=== PATIENT | male | born 1965 | race Caucasian/White ===

== ENCOUNTER 2019-05-17 10:46 | Inpatient (IN) | payer OTHER ==
[2019-05-17 11:09] VITALS: BMI 22.4
--- NOTE | 2019-05-17 12:16 | HP ---
"COWS - Scale Resting Pulse: 1= [place] 81-100 Sweatin= No chills or Flushing Restless Observation: 5= Unable to Sit Still Pupil Size: 0= Normal to Room Light Bone or Joint Aches: 0= None Runny Nose/ Eye Tearin= None GI Upset > 30mins: 0= None Tremor Observation: 0= None Yawning Observation: 0= None Anxiety or Irritability: 2=Irritable/Anxious Goose Flesh Skin: 0=Smooth Skin COWS Score: 8 CIWA Score Nausea/Vomitin-No Nausea/No Vomiting Muscle Tremors: None Anxiety: 2 Agitation: 2 Paroxysmal Sweats: No Perspiration Orientation: 0-Oriented Tacttile Disturbances: 0-None Auditory Disturbances: 0-None Visual Disturbances: 0-None Headache: 0-None Present CIWA-Ar Total Score: 4 - Admission Criteria OASAS Guidelines: Admission for Medically Managed Detox: Requires at least one of the followin. CIWA greater than 12 2. Seizures within the past 24 hours 3. Delirium tremens within the past 24 hours 4. Hallucinations within the past 24 hours 5. Acute intervention needed for co occurring medical disorder 6. Acute intervention needed for co occurring psychiatric disorder 7. Severe withdrawal that cannot be handled at a lower level of care (continued vomiting, continued diarrhea, abnormal vital signs) requiring intravenous medication and/or fluids 8. Admission ROS [facility] Allergies/Adverse Reactions: Allergies Allergy/AdvReac Type Severity Reaction Status Date / Time No Known Allergies Allergy Verified 05/17/19 10:59 History of Present Illness: This report was requested by: Stephany Sanders | Reference #: [id number] Others' Prescriptions Patient Name: Quan Parsons Date: 1965 Address: [address] [place] [address] Sex: Male Rx Written Rx Dispensed Drug Quantity Days Supply Prescriber Name 04/26/2019 04/26/2019 buprenorphine-naloxone 8-2 mg sl film 9 3 LaksClive MD 04/26/2019 04/26/2019 chlordiazepoxide 10 mg capsule 35 3 LaksClive MD 02/28/2019 02/28/2019 buprenorphine-naloxone 4-1 mg sl film 3 1 LaksClive MD 02/26/2019 02/26/2019 buprenorphine-naloxone 8-2 mg sl film 9 3 LaksClive MD 02/26/2019 02/26/2019 chlordiazepoxide 10 mg capsule 35 3 Laks, Clive CANTRELL pt here requesting detox from alcohol and heroin , reports 5-10 bags via inhalation, denies ivdu , latest use this morning .first age of use 20 , intermittent sobriety 2 yrs/ 7 yrs/ 7 mo , denies OD ,was in detox 2 weeks ago . etoh : 20 cans of beer/day , reports mild tremors if not drinking , reports 1-2 mo use , prior social use , denies seizures or blackouts . latest use today , current yahir 0.021 pmhx : anxiety , hep c s/p tx w/ Mavyret 2 yrs ago ,per pt he completed tx. Exam Limitations: No Limitations - Ebola screening Have you traveled outside of the country in the last 21 days: No Have you had contact with anyone from an Ebola affected area: No Do you have a fever: No - Review of Systems Constitutional: Loss of Appetite EENT: reports: Other (glasses) Respiratory: reports: No Symptoms reported Cardiac: reports: No Symptoms Reported GI: reports: Constipated, Poor Appetite : reports: No Symptoms Reported Musculoskeletal: reports: No Symptoms Reported Integumentary: reports: No Symptoms Reported Neuro: reports: No Symptoms reported Endocrine: reports: No Symptoms Reported Psychiatric: reports: Orientated x3, Agitated, Anxious Patient History - Smoking Cessation Smoking history: Current every day smoker Have you smoked in the past 12 months: Yes Hx Chewing Tobacco Use: No Initiated information on smoking cessation: Yes 'Breaking Loose' booklet given: 05/17/19 - Substances abused Alcohol Substance route: Oral Frequency: Daily Amount used: 24 cans of beer. 1 pint of vodka Age of first use: 11 Date of last use: 05/17/19 Heroin Substance route: Inhalation Frequency: Daily Amount used: 5-10 bags Age of first use: 20 Date of last use: 05/17/19 Admission Physical Exam [facility] - Vital Signs Vital Signs: Vital Signs - 24 hr 05/17/19 10:59 Temperature 97.7 F Pulse Rate 85 Respiratory 18 Rate Blood Pressure 101/73 - Physical General Appearance: Yes: Mild Distress, Alcohol on Breath, Intoxicated, Irritable, Anxious, Other (slurred speech) HEENTM: Yes: EOMI, Hearing grossly Normal, Normocephalic, Normal Voice Respiratory: Yes: Chest Non-Tender, Lungs Clear, Normal Breath Sounds, No Respiratory Distress, No Accessory Muscle Use Neck: Yes: No masses,lesions,Nodules, Trachea in good position Cardiology: Yes: Regular Rhythm, Regular Rate, S1, S2 Abdominal: Yes: Non Tender, Soft Genitourinary: Yes: Within Normal Limits Musculoskeletal: Yes: full range of Motion, Gait Steady Extremities: Yes: Normal Range of Motion, Non-Tender Neurological: Yes: Fully Oriented, Alert, Motor Strength 5/5 Integumentary: Yes: Warm - Diagnostic (1) Opioid dependence Current Visit: Yes Status: Acute Qualifiers: Substance use status: with intoxication (2) Nicotine dependence Current Visit: Yes Status: Chronic Qualifiers: Nicotine product type: cigarettes (3) Alcohol use disorder, mild, abuse Current Visit: Yes Status: Acute Inpatient Rehab Admission - Rehab Decision to Admit Inpatient rehab admission?: No"
[2019-05-17] MEDS ORDERED: IBUPROFEN 400 MG TABLET (FP) PO PRN (12:41)
[2019-05-17] MEDS ORDERED: METHOCARBAMOL 500 MG TABLET PO PRN (12:41)
[2019-05-17] MEDS ORDERED: BISMUTH SUBSALICYLATE 262 MG/15 ML BTL PO PRN (12:41)
[2019-05-17] MEDS ORDERED: MAGNESIUM CITRATE 300 ML BOTTLE PO PRN (12:41)
[2019-05-17] MEDS ORDERED: ACETAMINOPHEN 325 MG TABLET (FP) PO PRN ×2 (12:41)
[2019-05-17] MEDS ORDERED: MAGNESIUM HYDROX 2400MG/30ML ORAL SUSPENSION 30 ML CUP PO PRN (12:41)
[2019-05-17] MEDS ORDERED: MAG HYDROX/AL HYDROX/SIMETH 30 ML UNIT-DOSE CUP PO PRN (12:41)
[2019-05-17] MEDS ORDERED: MENTHOL/PHENOL 1 EACH UD MM PRN (12:41)
[2019-05-17] MEDS ORDERED: chlordiazePOXIDE HCL 10 MG CAPSULE PO PRN (12:44)
[2019-05-17] MEDS: chlordiazePOXIDE HCL 25 MG CAPSULE PO SCH ×2 (14:41→22:33)
[2019-05-17] MEDS: NICOTINE 14 MG/24 HOURS TOPICAL PATCH TD SCH (14:48)
[2019-05-17] MEDS: hydrOXYzine PAMOATE 25 MG CAPSULE (FP) PO PRN (16:59)
[2019-05-17] MEDS: THIAMINE HCL 100 MG TABLET (FP) PO SCH (22:33)
[2019-05-17] MEDS ORDERED: METHADONE HCL 10 MG TABLET (FOR DETOX USE ONLY) PO ONE (23:00)
[2019-05-18] MEDS: chlordiazePOXIDE HCL 25 MG CAPSULE PO SCH ×3 (07:47→21:35)
[2019-05-18] MEDS ORDERED: METHADONE HCL 5 MG TABLET (FOR DETOX USE ONLY) PO ONE (10:00)
--- NOTE | 2019-05-18 10:09 | PN ---
[facility] CIWA - CIWA Score Nausea/Vomitin-Mild Nausea/No Vomiting Muscle Tremors: 1-None Visible, but [place] Anxiety: 2 Agitation: 2 Paroxysmal Sweats: No Perspiration Orientation: 0-Oriented Tacttile Disturbances: 1-Very Mild Itch/Numbness Auditory Disturbances: 0-None Visual Disturbances: 0-None Headache: 1-Very Mild CIWA-Ar Total Score: 8 [facility] COWS - Scale Resting Pulse: 1= [place] 81-100 Sweatin= No chills or Flushing Restless Observation: 1= Difficult to Sit Still Pupil Size: 1= Pupils >than Normal Bone or Joint Aches: 1= Mild Discomfort Runny Nose/ Eye Tearin= Nasal Congestion GI Upset > 30mins: 1= Stomach Cramp Tremor Observation of Outstretched Hands: 1= Tremor [place], Not Seen Yawning Observation: 1= 1-2x During Session Anxiety or Irritability: 2=Irritable/Anxious Goose Flesh Skin: 0=Smooth Skin COWS Score: 10 [facility] Progress Note (SOAP) Subjective: alert,irritable,anxious,pain in the body and back,tremor Objective: 05/18/19 10:16 Vital Signs Temperature 97.9 F 05/18/19 09:20 Pulse Rate 92 H 05/18/19 09:20 Respiratory Rate 18 05/18/19 09:20 Blood Pressure 112/77 05/18/19 09:20 O2 Sat by Pulse Oximetry (%) labs pending Assessment: 05/18/19 10:16 withdrawal symptom Plan: continue detox,methadone and librium regimen
[2019-05-18] MEDS: NICOTINE 14 MG/24 HOURS TOPICAL PATCH TD SCH (10:25)
[2019-05-18] MEDS: PRENATAL VITAMINS W/ FOLIC ACID TABLET (FP) PO SCH (10:25)
[2019-05-18 10:34] LABS: HEMATOCRIT 41.1 % (35.4-49); HEMOGLOBIN 13.6 GM/dL (11.7-16.9); MCH 32.2 pg (25.7-33.7); MCHC 33.1 g/dl (32.0-35.9); MEAN CELL VOLUME 97.4 fl (80-96); MEAN PLT VOLUME 9.4 fl (7.5-11.1); PLATELET COUNT 223 K/MM3 (134-434); RBC 4.22 M/mm3 (4.00-5.60); RDW 14.9 % (11.9-15.9); WHITE BLOOD COUNT 8.8 K/mm3 (4.0-10.0)
[2019-05-18 10:57] LABS: ALBUMIN 3.4 g/dl (3.4-5.0); BILIRUBIN,TOTAL 0.4 mg/dL (0.2-1); BLOOD UREA NITROGEN 10.4 mg/dL (7-18); CALCIUM 8.8 mg/dL (8.5-10.1); CREATININE 0.7 mg/dL (0.55-1.3); POTASSIUM 4.5 mmol/L (3.5-5.1); TOT PROT 6.5 g/dl (6.4-8.2)
[2019-05-18] MEDS ORDERED: FLU VACCINE QUAD 60 MCG/0.5 ML (MDV 19-20) IM ONE (12:00)
[2019-05-18] MEDS: THIAMINE HCL 100 MG TABLET (FP) PO SCH (22:35)
[2019-05-19] MEDS: chlordiazePOXIDE 5 MG CAPSULE PO SCH ×3 (07:07→21:45)
[2019-05-19] MEDS ORDERED: METHADONE HCL 10 MG TABLET (FOR DETOX USE ONLY) PO ONE (10:00)
[2019-05-19] MEDS: NICOTINE 14 MG/24 HOURS TOPICAL PATCH TD SCH (10:23)
[2019-05-19] MEDS: PRENATAL VITAMINS W/ FOLIC ACID TABLET (FP) PO SCH (10:23)
--- NOTE | 2019-05-19 11:02 | PN ---
S CIWA - CIWA Score Nausea/Vomitin-No Nausea/No Vomiting Muscle Tremors: 2 Anxiety: 3 Agitation: 0-Normal Activity Paroxysmal Sweats: 3 Orientation: 0-Oriented Tacttile Disturbances: 0-None Auditory Disturbances: 0-None Visual Disturbances: 0-None Headache: 2-Mild CIWA-Ar Total Score: 10 S COWS - Scale Resting Pulse: 0= [place] 80 or Below Sweatin= Beads of Sweat on Face Restless Observation: 1= Difficult to Sit Still Pupil Size: 0= Normal to Room Light Bone or Joint Aches: 2= Severe Diffuse Aches Runny Nose/ Eye Tearin= None GI Upset > 30mins: 0= None Tremor Observation of Outstretched Hands: 0= None Yawning Observation: 1= 1-2x During Session Anxiety or Irritability: 2=Irritable/Anxious Goose Flesh Skin: 0=Smooth Skin COWS Score: 9 S Progress Note (SOAP) Subjective: c/o anxiety, irritability, headache, and sweats. Objective: 05/19/19 11:00 Vital Signs 05/19/19 06:21 Temperature 97.9 F Pulse Rate 75 Respiratory 16 Rate Blood Pressure 138/87 Lab Results WBC 8.8 K/mm3 (4.0-10.0) 05/18/19 07:20 RBC 4.22 M/mm3 (4.00-5.60) 05/18/19 07:20 Hgb 13.6 GM/dL (11.7-16.9) 05/18/19 07:20 Hct 41.1 % (35.4-49) 05/18/19 07:20 MCV 97.4 fl (80-96) H 05/18/19 07:20 MCHC 33.1 g/dl (32.0-35.9) 05/18/19 07:20 RDW 14.9 % (11.9-15.9) 05/18/19 07:20 Plt Count 223 K/MM3 (134-434) 05/18/19 07:20 Sodium 143 mmol/L (136-145) 05/18/19 07:20 Potassium 4.5 mmol/L (3.5-5.1) 05/18/19 07:20 Chloride 109 mmol/L (98-107) H 05/18/19 07:20 Carbon Dioxide 28 mmol/L (21-32) 05/18/19 07:20 Anion Gap 6 MMOL/L (8-16) L 05/18/19 07:20 BUN 10.4 mg/dL (7-18) 05/18/19 07:20 Creatinine 0.7 mg/dL (0.55-1.3) 05/18/19 07:20 Random Glucose 97 mg/dL (74-106) 05/18/19 07:20 Calcium 8.8 mg/dL (8.5-10.1) 05/18/19 07:20 Labs noted. Assessment: 05/19/19 11:00 AOX3, in no acute respiratory distress. Full ROM, ambulating in the unit. withdrawal symptoms. Plan: continue detox.
[2019-05-19] MEDS: hydrOXYzine PAMOATE 25 MG CAPSULE (FP) PO PRN (15:16)
[2019-05-19] MEDS ORDERED: NICOTINE POLACRILEX 2 MG GUM BC PRN (17:13)
[2019-05-19] MEDS: THIAMINE HCL 100 MG TABLET (FP) PO SCH (21:44)
[2019-05-19] MEDS: MELATONIN 5 MG TABLETS PO PRN (21:44)
[2019-05-20] MEDS ORDERED: chlordiazePOXIDE HCL 10 MG CAPSULE PO PRN
[2019-05-20] MEDS ORDERED: METHADONE HCL 5 MG TABLET (FOR DETOX USE ONLY) PO ONE (06:00)
[2019-05-20] MEDS: chlordiazePOXIDE HCL 10 MG CAPSULE PO SCH ×3 (06:44→21:23)
[2019-05-20] MEDS: NICOTINE 14 MG/24 HOURS TOPICAL PATCH TD SCH (10:24)
[2019-05-20] MEDS: PRENATAL VITAMINS W/ FOLIC ACID TABLET (FP) PO SCH (10:24)
--- NOTE | 2019-05-20 12:22 | PN ---
S CIWA - CIWA Score Nausea/Vomitin-No Nausea/No Vomiting Muscle Tremors: None Anxiety: 3 Agitation: 2 Paroxysmal Sweats: 2 Orientation: 0-Oriented Tacttile Disturbances: 0-None Auditory Disturbances: 0-None Visual Disturbances: 0-None Headache: 0-None Present CIWA-Ar Total Score: 7 S COWS - Scale Resting Pulse: 0= [place] 80 or Below Sweatin= No chills or Flushing Restless Observation: 0= Sits Still Pupil Size: 0= Normal to Room Light Bone or Joint Aches: 1= Mild Discomfort Runny Nose/ Eye Tearin= None GI Upset > 30mins: 1= Stomach Cramp Tremor Observation of Outstretched Hands: 0= None Yawning Observation: 1= 1-2x During Session Anxiety or Irritability: 2=Irritable/Anxious Goose Flesh Skin: 0=Smooth Skin COWS Score: 5 S Progress Note (SOAP) Subjective: Feels ok, medication is working Objective: 05/20/19 12:23 Last Vital Signs Temp Pulse Resp BP Pulse Ox 98.1 F 80 16 122/74 05/20/19 09:36 05/20/19 09:36 05/20/19 09:36 05/20/19 09:36 Laboratory Tests 05/18/19 05/18/19 05/18/19 07:20 07:20 07:20 WBC 8.8 RBC 4.22 Hgb 13.6 Hct 41.1 MCV 97.4 H MCH 32.2 MCHC 33.1 RDW 14.9 Plt Count 223 MPV 9.4 Sodium 143 Potassium 4.5 Chloride 109 H Carbon Dioxide 28 Anion Gap 6 L BUN 10.4 Creatinine 0.7 Est GFR (CKD-EPI)AfAm 122.27 Est GFR (CKD-EPI)NonAf 105.50 Random Glucose 97 Calcium 8.8 Total Bilirubin 0.4 AST 17 ALT 23 Alkaline Phosphatase 72 Total Protein 6.5 Albumin 3.4 RPR Titer Nonreactive Labs reviewed Assessment: 05/20/19 12:23 Withdrawal sxs Plan: Continue detox Encouraged PO water intake Patient scheduled for discharge tomorrow
[2019-05-20] MEDS: THIAMINE HCL 100 MG TABLET (FP) PO SCH (22:24)
[2019-05-21] MEDS: MELATONIN 5 MG TABLETS PO PRN (00:16)
[2019-05-21] MEDS ORDERED: chlordiazePOXIDE HCL 10 MG CAPSULE PO ONE (05:00)
[2019-05-21 09:14] VITALS: TEMP 97.5
[2019-05-21 09:37] VITALS: BP 116/67; PULSE 83
[2019-05-21] MEDS ORDERED: IBUPROFEN 400 MG TABLET (FP) PO PRN (09:37)
--- NOTE | 2019-05-21 11:18 | PN ---
[facility] CIWA - CIWA Score Nausea/Vomitin-No Nausea/No Vomiting Muscle Tremors: 1-None Visible, but [place] Anxiety: 1-Mildly Anxious Agitation: 1-Slight > Activity Paroxysmal Sweats: No Perspiration Orientation: 0-Oriented Tacttile Disturbances: 0-None Auditory Disturbances: 0-None Visual Disturbances: 0-None Headache: 0-None Present CIWA-Ar Total Score: 3 [facility] COWS - Scale Resting Pulse: 1= [place] 81-100 Sweatin= No chills or Flushing Restless Observation: 0= Sits Still Pupil Size: 0= Normal to Room Light Bone or Joint Aches: 1= Mild Discomfort Runny Nose/ Eye Tearin= None GI Upset > 30mins: 0= None Tremor Observation of Outstretched Hands: 0= None Yawning Observation: 0= None Anxiety or Irritability: 0= None Goose Flesh Skin: 0=Smooth Skin COWS Score: 2 S Progress Note (SOAP) Subjective: alert,no complaint, Objective: 05/21/19 11:16 Vital Signs Temperature 97.5 F L 05/21/19 09:36 Pulse Rate 83 05/21/19 09:36 Respiratory Rate 16 05/21/19 09:36 Blood Pressure 116/67 05/21/19 09:36 O2 Sat by Pulse Oximetry (%) Assessment: 05/21/19 11:16 detox completed,no withdrawal symptom Plan: stable for discharge today,follow up with after care program as arrangement
--- NOTE | 2019-05-21 11:21 | PN ---
[facility] Progress Note Note: patient is taking motrin 800 mgs po q 8 hrs prn and gabapentin 300 mgs po tid for low back pain, will be discharged with these medications for 10 days supplied
--- NOTE | 2019-05-21 11:26 | DS ---
[facility] Detox Discharge Summary Admission Date: 05/17/19 Discharge Date: 05/21/19 - History Present History: Alcohol Dependence, Opioid Dependence Additional Comments: follow up with after care program as arrangement Pertinent Past History: nicotine dependence low back pain - Physical Exam Results Vital Signs: Vital Signs Temperature 97.5 F L 05/21/19 09:36 Pulse Rate 83 05/21/19 09:36 Respiratory Rate 16 05/21/19 09:36 Blood Pressure 116/67 05/21/19 09:36 O2 Sat by Pulse Oximetry (%) Pertinent Admission Physical Exam Findings: withdrawal signs and symptom Vital Signs Temperature 97.5 F L 05/21/19 09:36 Pulse Rate 83 05/21/19 09:36 Respiratory Rate 16 05/21/19 09:36 Blood Pressure 116/67 05/21/19 09:36 O2 Sat by Pulse Oximetry (%) Laboratory Last Values WBC 8.8 K/mm3 (4.0-10.0) 05/18/19 07:20 RBC 4.22 M/mm3 (4.00-5.60) 05/18/19 07:20 Hgb 13.6 GM/dL (11.7-16.9) 05/18/19 07:20 Hct 41.1 % (35.4-49) 05/18/19 07:20 MCV 97.4 fl (80-96) H 05/18/19 07:20 MCH 32.2 pg (25.7-33.7) 05/18/19 07:20 MCHC 33.1 g/dl (32.0-35.9) 05/18/19 07:20 RDW 14.9 % (11.9-15.9) 05/18/19 07:20 Plt Count 223 K/MM3 (134-434) 05/18/19 07:20 MPV 9.4 fl (7.5-11.1) 05/18/19 07:20 Sodium 143 mmol/L (136-145) 05/18/19 07:20 Potassium 4.5 mmol/L (3.5-5.1) 05/18/19 07:20 Chloride 109 mmol/L (98-107) H 05/18/19 07:20 Carbon Dioxide 28 mmol/L (21-32) 05/18/19 07:20 Anion Gap 6 MMOL/L (8-16) L 05/18/19 07:20 BUN 10.4 mg/dL (7-18) 05/18/19 07:20 Creatinine 0.7 mg/dL (0.55-1.3) 05/18/19 07:20 Est GFR (CKD-EPI)AfAm 122.27 05/18/19 07:20 Est GFR (CKD-EPI)NonAf 105.50 05/18/19 07:20 Random Glucose 97 mg/dL (74-106) 05/18/19 07:20 Calcium 8.8 mg/dL (8.5-10.1) 05/18/19 07:20 Total Bilirubin 0.4 mg/dL (0.2-1) 05/18/19 07:20 AST 17 U/L (15-37) 05/18/19 07:20 ALT 23 U/L (13-61) 05/18/19 07:20 Alkaline Phosphatase 72 U/L (45-117) 05/18/19 07:20 Total Protein 6.5 g/dl (6.4-8.2) 05/18/19 07:20 Albumin 3.4 g/dl (3.4-5.0) 05/18/19 07:20 RPR Titer Nonreactive (NONREACTIVE) 05/18/19 07:20 - Treatment Hospital Course: Detox Protocol Followed, Detoxed Safely, Responded well, Discharged Condition Good - Medication Discharge Medications: Ambulatory Orders NK [No Known Home Medication] 05/17/19
[2019-05-21] MEDS ORDERED: GABAPENTIN 300 MG CAPSULE (FP) PO SCH (14:00)
== END 2019-05-21 09:55 | disposition home or self-care (01) | DRG 773 ==
LOC: YASAS 10:46 → Y6N 12:57
PROVIDERS: ADMIT Allergy & Immunology; ATTEND Allergy & Immunology
PROC: HZ2ZZZZ Detoxification Services for Substance Abuse Treatment (ICD-10-PCS; principal; 2019-05-17)
DX: F11.23 Opioid dependence with withdrawal (principal); F10.230 Alcohol dependence with withdrawal, uncomplicated; F10.220 Alcohol dependence with intoxication, uncomplicated; F17.210 Nicotine dependence, cigarettes, uncomplicated; M54.5 Low back pain; Z59.0 Homelessness
CPT/HCPCS: 36415; 80053; 85027; 86593; Q2036